=== PATIENT | female | born 1940 ===

== ENCOUNTER 2017-09-17 04:54 | Observation (INO) | payer OTHER ==
[2017-09-17] MEDS ORDERED: Nitroglycerin 2% Ointment Foilpak UD TOP STA (05:13)
[2017-09-17] MEDS ORDERED: Nitroglycerin 2% Ointment Foilpak UD TOP ONE (05:27)
--- NOTE | 2017-09-17 05:41 | ED PDOC ---
HPI: SOB/CHF/COPD Time Seen by Provider: 09/17/17 04:56 Chief Complaint (Nursing): Shortness Of Breath Chief Complaint (Provider): Shortness of Breath, Chest Pressure History Per: Patient History/Exam Limitations: no limitations Onset/Duration Of Symptoms: Days (x 2) Current Symptoms Are (Timing): Still Present Exacerbating Factor(s): Laying Flat Additional Complaint(s): Patient is a 77 y/o female with a past medical history of hypertension , diabetes, and dyslipidemia who presents to the ED with chest pressure and shortness of breath that started 2 days ago. Patient reports that the chest pressure is worse with recumbence, and also states that for the past 3 months shes had lower extremity edema. She denies fever, nausea, vomiting, diarrhea, or cough. PMD: None Provided Past Medical History Reviewed: Historical Data, Nursing Documentation, Vital Signs Vital Signs: Last Vital Signs Temp 98.2 F 09/17/17 06:39 Pulse 88 09/17/17 06:39 Resp 17 09/17/17 06:39 BP 190/87 H 09/17/17 06:39 Pulse Ox 97 09/17/17 06:39 - Medical History PMH: Arthritis, Back Problems, Depression, Diabetes, Gastritis, HTN, Hypercholesterolemia, Chronic Kidney Disease Other PMH: dyslipidemia - Surgical History Surgical History: Cholecystectomy - Family History Family History: States: Unknown Family Hx - Social History Current smoker - smoking cessation education provided: No Ex-Smoker (has not smoked in the last 12 months): No Alcohol: None Drugs: Denies - Home Medications Home Medications: Ambulatory Orders Medication Instructions Recorded Fenofibrate Nanocrystallized 145 mg PO DAILY 08/19/14 [Fenofibrate] Sertraline HCl [Zoloft] 25 mg PO DAILY 08/19/14 Solifenacin Succinate [Vesicare] 5 mg PO DAILY 08/19/14 amLODIPine [Norvasc] 10 mg PO DAILY #30 tab 10/08/15 Insulin Glargine, Recombina 40 units SC HS 01/16/17 [Lantus] MetFORMIN [glucoPHAGE] 1,000 mg PO BID tab 01/17/17 - Allergies Allergies/Adverse Reactions: Allergies Allergy/AdvReac Type Severity Reaction Status Date / Time aspirin Allergy RASH Verified 03/11/16 11:37 Review of Systems ROS Statement: Except As Marked, All Systems Reviewed And Found Negative Constitutional: Negative for: Fever Cardiovascular: Positive for: Chest Pain (pressure), Orthopnea, Paroxysmal Noc. Dyspnea Respiratory: Positive for: Shortness of Breath, SOB with Exertion. Negative for : Cough Gastrointestinal: Negative for: Nausea, Vomiting, Diarrhea Physical Exam - Reviewed Nursing Documentation Reviewed: Yes Vital Signs Reviewed: Yes - Physical Exam Appears: Positive for: Non-toxic, No Acute Distress Head Exam: Positive for: ATRAUMATIC, NORMAL INSPECTION, NORMOCEPHALIC Skin: Positive for: Normal Color, Warm, Dry Eye Exam: Positive for: Normal appearance, EOMI, PERRL. Negative for: Nystagmus ENT: Positive for: Normal ENT Inspection Neck: Positive for: Normal, Painless ROM, Supple Cardiovascular/Chest: Positive for: Regular Rate, Rhythm. Negative for: Edema, Murmur Respiratory: Positive for: Crackles (bibasilar), Rales Gastrointestinal/Abdominal: Positive for: Normal Exam, Bowel Sounds, Soft. Negative for: Tenderness Extremity: Positive for: Pedal Edema (bilateral 2+) Neurologic/Psych: Positive for: Alert, Oriented - Laboratory Results Result Diagrams: 09/17/17 05:20 - ECG O2 Sat by Pulse Oximetry: 98 (RA) Pulse Ox Interpretation: Normal Medical Decision Making Medical Decision Making: Time: 5:06 Initial Impression: 77 y/o female with shortness of breath, chest pain in setting of known diabetes, hypertension, and dyslipidemia Initial Plan: --B-Type Natriuretic Peptide --EKG --CMP --Troponin I --CBC --PTT --Prothrombin Time --Chest x-ray --Lasix --Nitro-Bid Time: 5:47 --Consulted with Dr. Connolly Scribe Attestation: Documented by Frank Cramer, acting as a scribe for Gordon Gomez MD Provider Scribe Attestation: All medical record entries made by the Scribe were at my direction and personally dictated by me. I have reviewed the chart and agree that the record accurately reflects my personal performance of the history, physical exam, medical decision making, and the department course for this patient. I have also personally directed, reviewed, and agree with the discharge instructions and disposition. Disposition - Clinical Impression Clinical Impression: CHF (congestive heart failure) - Patient ED Disposition Is Patient to be Admitted: Yes - Disposition Disposition Time: 06:00 Condition: FAIR - Pt Status Changed To: Hospital Disposition Of: Observation
[2017-09-17 06:19] LABS: BASO # 0.1 K/uL (0.0-0.2); EOS # 0.2 K/uL (0.0-0.7); EOS % 2.7 % (0.0-4.0); HEMATOCRIT 35.5 % (34.0-47.0); LYMPH # 2.2 K/uL (1.0-4.3); LYMPH % 28.6 % (20.0-40.0); MEAN CELL VOLUME 89.3 fl (81.0-99.0); MEAN CORPUSCULAR HGB CONC 33.6 g/dL (33.0-37.0); MEAN PLATELET VOLUME 11.8 fl (7.2-11.7); MONO # 0.8 K/uL (0.0-0.8); MONO % 10.3 % (0.0-10.0); NEUT # 4.3 K/uL (1.8-7.0); NEUT % 57.4 % (50.0-75.0); NRBC % 0.1 % (0.0-0.0); RED CELL DISTRIBUTION WIDTH 14.3 % (11.5-14.5)
[2017-09-17 06:53] LABS: ALB/GLOB RATIO 1.2 (1.0-2.1); ALKALINE PHOSPHATASE 132 U/L (38-126); ALT/SGPT 78 U/L (9-52); AST/SGOT 63 U/L (14-36); BILIRUBIN,TOTAL 0.2 mg/dl (0.2-1.3); BLOOD UREA NITROGEN 22 mg/dl (7-17); CALCIUM 8.4 mg/dL (8.4-10.2); CARBON DIOXIDE 24 mmol/L (22-30); CHLORIDE 106 mmol/L (98-107); GFR AFRICAN-AMERICAN 44; GLUCOSE,RANDOM 269 mg/dL (65-105); SODIUM 140 mmol/l (132-148); TOTAL PROTEIN 7.2 G/DL (6.3-8.2)
[2017-09-17 07:31] LABS: PARTIAL THROMBOPLASTIN TIME 29.5 Seconds (25.6-37.1)
[2017-09-17] MEDS ORDERED: Glucagon Recombinant 1 mg Inj IM PRN (07:54)
[2017-09-17] MEDS ORDERED: Dextrose 50% SYRINGE Inj (50 ml) IV PRN (07:54)
--- NOTE | 2017-09-17 09:58 | RAD ---
HISTORY: Chest pain COMPARISON: 01/15/2017. FINDINGS: LUNGS: The lungs are well inflated and clear. No focal consolidation. PLEURA: No significant pleural effusion identified, no pneumothorax apparent. CARDIOVASCULAR: Normal. OSSEOUS STRUCTURES: No significant abnormalities. VISUALIZED UPPER ABDOMEN: Normal. OTHER FINDINGS: None. IMPRESSION: No acute findings.
[2017-09-17] MEDS: Enoxaparin 40 mg Syringe SC SCH (12:17)
[2017-09-17] MEDS: Insulin Regular 100 units/ml SC SCH ×3 (12:39→22:21)
--- NOTE | 2017-09-17 13:21 | CARD ---
APPROVED REPORT EXAM: Two-dimensional and M-mode echocardiogram with Doppler and color Doppler. Other Information Quality : GoodRhythm : NSR INDICATION Chest Pain 2D DIMENSIONS IVSd1.44 (0.7-1.1cm)LVDd4.41 (3.9-5.9cm) LVOT Diameter2.19 (1.8-2.4cm)PWd1.11 (0.7-1.1cm) IVSs1.55 (0.8-1.2cm)LVDs2.76 (2.5-4.0cm) FS (%) 37.4 %PWs1.38 (0.8-1.2cm) M-Mode DIMENSIONS Left Atrium (MM)4.41 (2.5-4.0cm)IVSd1.47 (0.7-1.1cm) Aortic Root2.56 (2.2-3.7cm)LVDd4.44 (4.0-5.6cm) Aortic Cusp Exc.1.21 (1.5-2.0cm)PWd1.12 (0.7-1.1cm) IVSs1.82 cmFS (%) 48 % LVDs2.29 (2.0-3.8cm)PWs1.62 cm Aortic Valve AoV Peak Wnyggxhc228.7cm/sAoV VTI56.5cmAO Peak GR.22mmHg LVOT Peak Brxqqkhf135.6cm/sLVOT VTI28.80cmAO Mean GR.12mmHg FER (VMAX)1.14gm8DKL (VTI)1.12cm2 Mitral Valve MV E Yeenuicl01.2cm/sMV [address]456id[address] A Rllfxlpe43.1cm/s MV SVU27evZ/A ratio1.2MVA (PHT)2.73cm2 TDI Lateral E' Peak V9.04cm/sMedial E' Peak V6.27cm/sE/Lateral E'9.8 E/Medial E'14.1 Tricuspid Valve TR Peak Gqvptnrb182qo/sRAP GEBADUBQ57umXvCW Peak Gr.36mmHg GHED98izGn LEFT VENTRICLE The left ventricle is normal size. There is mild concentric left ventricular hypertrophy. Left ventricle systolic function is normal. The Ejection Fraction is 65-70%. There is normal LV segmental wall motion. Transmitral Doppler flow pattern is Grade I-abnormal relaxation pattern. RIGHT VENTRICLE The right ventricle is normal size. There is normal right ventricular wall thickness. The right ventricular systolic function is normal. ATRIA The left atrium size is normal. The right atrium size is normal. AORTIC VALVE The aortic valve is moderately sclerotic. No aortic regurgitation is present. There is mild valvular aortic stenosis. Calculated aortic valve area is 1.6 cm2 with maximum pressure gradient of 21 mmHg and mean pressure gradient of 11 mmHg. MITRAL VALVE Mitral annular calcification is mild. There is no evidence of mitral valve prolapse. There is no mitral valve stenosis. Mitral regurgitation is mild to moderate. TRICUSPID VALVE The tricuspid valve is normal in structure. There is mild tricuspid regurgitation. Right ventricular systolic pressure is estimated at 46 mmHg. There is moderate pulmonary hypertension. PULMONIC VALVE The pulmonary valve is normal in structure and function. There is no pulmonic valvular regurgitation. GREAT VESSELS The aortic root is normal in size. The IVC is dilated. The IVC collapses >50% with inspiration. PERICARDIAL EFFUSION The pericardium appears normal. <Conclusion> The left ventricle is normal size. There is mild concentric left ventricular hypertrophy. There is normal LV segmental wall motion. Left ventricle systolic function is normal. The Ejection Fraction is 65-70%. Transmitral Doppler flow pattern is Grade I-abnormal relaxation pattern. The aortic valve is moderately sclerotic. There is mild valvular aortic stenosis. There is mild tricuspid regurgitation. There is moderate pulmonary hypertension.
[2017-09-17] MEDS ORDERED: Pneumococcal 23-Valent Vaccine IM ONE (14:33)
[2017-09-17] MEDS ORDERED: Influenza Vaccine 18yr & older 0.5 ML/45 MCG SYR IM ONE (14:59)
--- NOTE | 2017-09-17 16:11 | CP.PCM.CON ---
History of Present Illness - History of Present Illness History of Present Illness: PT W CHEST PAIN WHICH STARTED IN THE EPIGASTRIC REGION WENT SUBSTERNAL AND INTO THROAT. ASSOCIATED WITH SOUR TASTE IN MOUTH AND SOB. OCCURRED WITH LAYING DOWN. Past Patient History - Past Medical History & Family History Past Medical History?: Yes - Past Social History Smoking Status: Never Smoked - CARDIAC Hx Hypercholesterolemia: Yes Hx Hypertension: Yes - PULMONARY Hx Respiratory Disorders: No - NEUROLOGICAL Hx Neurological Disorder: No - HEENT Hx HEENT Problems: No - RENAL Hx Chronic Kidney Disease: Yes - ENDOCRINE/METABOLIC Hx Endocrine Disorders: Yes Hx Diabetes Mellitus Type 2: Yes - HEMATOLOGICAL/ONCOLOGICAL Hx Blood Disorders: No Hx Blood Transfusions: Yes Hx Blood Transfusion Reaction: No - INTEGUMENTARY Hx Dermatological Problems: No - MUSCULOSKELETAL/RHEUMATOLOGICAL Hx Falls: No - GASTROINTESTINAL Hx Gastritis: Yes - GENITOURINARY/GYNECOLOGICAL Hx Genitourinary Disorders: Yes Hx Urinary Tract Infection: Yes - PSYCHIATRIC Hx Substance Use: No - SURGICAL HISTORY Hx Cholecystectomy: Yes - ANESTHESIA Hx Anesthesia: Yes Hx Anesthesia Reactions: No Hx Malignant Hyperthermia: No Meds Allergies/Adverse Reactions: Allergies Allergy/AdvReac Type Severity Reaction Status Date / Time aspirin Allergy RASH Verified 03/11/16 11:37 - Medications Medications: Current Medications Amlodipine Besylate (Norvasc) 10 mg PO DAILY [facility] Clopidogrel Bisulfate (Plavix) 75 mg PO DAILY [facility] Last Admin: 09/17/17 12:21 Dose: 75 mg Dextrose (Dextrose 50% Inj) 0 ml IV STAT PRN; Protocol PRN Reason: Hyglycemia Protocol Dextrose (Glutose 15) 0 gm PO ONCE PRN; Protocol PRN Reason: Hypoglycemia Protocol Enoxaparin Sodium (Lovenox) 40 mg SC DAILY [facility] PRN Reason: Protocol Last Admin: 09/17/17 12:17 Dose: 40 mg Fenofibrate (Tricor) 145 mg PO DAILY [facility] Last Admin: 09/17/17 12:16 Dose: 145 mg Furosemide (Lasix) 40 mg PO DAILY [facility] Last Admin: 09/17/17 12:24 Dose: 40 mg Gabapentin (Neurontin) 300 mg PO DAILY [facility] Last Admin: 09/17/17 12:16 Dose: 300 mg Glucagon (Glucagen Diagnostic Kit) 0 mg IM STAT PRN; Protocol PRN Reason: Hypoglycemia Protocol Insulin Human Regular (Humulin R) 0 units SC ACHS [facility] PRN Reason: Protocol Last Admin: 09/17/17 12:39 Dose: 1 u Metoprolol Tartrate (Lopressor) 100 mg PO Q12 NADYA Ramipril (Altace) 1.25 mg PO DAILY [facility] Results - Vital Signs Recent Vital Signs: Last Vital Signs Temp 98.2 F 09/17/17 13:00 Pulse 53 L 09/17/17 13:00 Resp 16 09/17/17 13:00 BP 194/82 H 09/17/17 13:00 Pulse Ox 100 09/17/17 13:00 - Labs Result Diagrams: 09/17/17 05:20 09/17/17 05:20 Labs: Laboratory Results - last 24 hr 09/17/17 09/17/17 09/17/17 05:12 05:20 05:20 WBC 6.0 RBC 3.97 Hgb 11.9 L Hct 35.5 MCV 89.3 MCH 30.0 MCHC 33.6 RDW 14.3 Plt Count 140 MPV 11.8 H Neut % (Auto) 57.4 Lymph % (Auto) 28.6 [facility] % (Auto) 10.3 H Eos % (Auto) 2.7 Baso % (Auto) 1.0 Neut # 4.3 Lymph # 2.2 [facility] # 0.8 Eos # 0.2 Baso # 0.1 PT INR APTT Sodium 140 Potassium 4.0 Chloride 106 Carbon Dioxide 24 Anion Gap 15 BUN 22 H Creatinine 1.4 H Est GFR ( Amer) 44 Est GFR (Non-Af Amer) 37 POC Glucose (mg/dL) 256 H Random Glucose 269 H Calcium 8.4 Total Bilirubin 0.2 AST 63 H ALT 78 H D Alkaline Phosphatase 132 H Troponin I < 0.0120 NT-Pro-B Natriuret Pep 1140 H Total Protein 7.2 Albumin 3.9 Globulin 3.3 Albumin/Globulin Ratio 1.2 09/17/17 05:20 WBC RBC Hgb Hct MCV MCH MCHC RDW Plt Count MPV Neut % (Auto) Lymph % (Auto) [facility] % (Auto) Eos % (Auto) Baso % (Auto) Neut # Lymph # [facility] # Eos # Baso # PT 11.7 INR 1.0 APTT 29.5 Sodium Potassium Chloride Carbon Dioxide Anion Gap BUN Creatinine Est GFR ( Amer) Est GFR (Non-Af Amer) POC Glucose (mg/dL) Random Glucose Calcium Total Bilirubin AST ALT Alkaline Phosphatase Troponin I NT-Pro-B Natriuret Pep Total Protein Albumin Globulin Albumin/Globulin Ratio Assessment & Plan (1) GERD (gastroesophageal reflux disease) Status: Acute (2) Chest pain Status: Acute (3) Hypertension Status: Acute - Assessment and Plan (Free Text) Plan: BP IS CONTROLLED NOW ON HOME MEDS. LATEST 110/70. HR IS LOW AT 52. WOULD STOP CLONIDINE AND ADD RAMIPRIL LOW DOSE. ALSO START PPI. [place] RULED OUT. NO NEED FOR FURTHER CARDIAC EVAL AT THIS TIME CP APPEARS TO BE GERD.
[2017-09-17] MEDS: Pantoprazole 40 mg EC Tab PO SCH (16:53)
--- NOTE | 2017-09-17 18:55 | CP.PCM.HP ---
History of Present Illness - History of Present Illness History of Present Illness: Patient is a 77 y/o female with a past medical history of hypertension , diabetes, and dyslipidemia who came for chest pressure and shortness of breath that started 2 days ago. Patient reports that the chest pressure is worse with recumbence, and also states that for the past 3 months shes had lower extremity edema. She denies fever, nausea, vomiting, diarrhea, or cough. Her medicines included 75 mg of clopidogrel, 100 mg of metoprolol twice a day, 40 mg of furosemide, 300 mg of gabapentin for muscle cramps, 0.1 mg of clonidine , Acidophilus, 500 mg of ciprofloxacin, with 54 units of lantus and 10 units of Humalog three times a day for each meal. Present on Admission - Present on Admission Any Indicators Present on Admission: No History of DVT/PE: No History of Uncontrolled Diabetes: No Urinary Catheter: No Decubitus Ulcer Present: No Review of Systems - Constitutional Constitutional: absent: Anorexia, Daytime Sleepiness - EENT Eyes: absent: Change in Vision Nose/Mouth/Throat: absent: Nasal Congestion - Cardiovascular Cardiovascular: Chest Pain. absent: Chest Pain with Activity, Pain Radiating to Arm/Neck/Jaw, Lightheadedness, Orthopnea - Respiratory Respiratory: Dyspnea. absent: Chest Congestion - Gastrointestinal Gastrointestinal: absent: Nausea, Vomiting - Genitourinary Genitourinary: absent: Change in Urinary Stream, Difficulty Urinating Past Patient History - Past Medical History & Family History Past Medical History?: Yes - Past Social History Smoking Status: Never Smoked - CARDIAC Hx Hypercholesterolemia: Yes Hx Hypertension: Yes - PULMONARY Hx Respiratory Disorders: No - NEUROLOGICAL Hx Neurological Disorder: No - HEENT Hx HEENT Problems: No - RENAL Hx Chronic Kidney Disease: Yes - ENDOCRINE/METABOLIC Hx Endocrine Disorders: Yes Hx Diabetes Mellitus Type 2: Yes - HEMATOLOGICAL/ONCOLOGICAL Hx Blood Disorders: No Hx Blood Transfusions: Yes Hx Blood Transfusion Reaction: No - INTEGUMENTARY Hx Dermatological Problems: No - MUSCULOSKELETAL/RHEUMATOLOGICAL Hx Falls: No - GASTROINTESTINAL Hx Gastritis: Yes - GENITOURINARY/GYNECOLOGICAL Hx Genitourinary Disorders: Yes Hx Urinary Tract Infection: Yes - PSYCHIATRIC Hx Substance Use: No - SURGICAL HISTORY Hx Cholecystectomy: Yes - ANESTHESIA Hx Anesthesia: Yes Hx Anesthesia Reactions: No Hx Malignant Hyperthermia: No Meds Allergies/Adverse Reactions: Allergies Allergy/AdvReac Type Severity Reaction Status Date / Time aspirin Allergy RASH Verified 04/10/16 11:37 Physical Exam - Constitutional Appears: No Acute Distress - Respiratory Exam Respiratory Exam: Clear to Auscultation Bilateral, NORMAL BREATHING PATTERN - Cardiovascular Exam Cardiovascular Exam: REGULAR RHYTHM. absent: Systolic Murmur - GI/Abdominal Exam GI & Abdominal Exam: Normal Bowel Sounds, Soft. absent: Tenderness - Extremities Exam Extremities exam: Positive for: normal inspection. Negative for: pedal edema Results - Vital Signs Recent Vital Signs: Last Vital Signs Temp 97.7 F 09/17/17 16:18 Pulse 89 09/17/17 16:18 Resp 20 09/17/17 16:18 BP 111/75 09/17/17 16:18 Pulse Ox 97 09/17/17 16:18 - Labs Result Diagrams: 09/17/17 05:20 09/17/17 05:20 Labs: Laboratory Results - last 24 hr 09/17/17 09/17/17 09/17/17 05:12 05:20 05:20 WBC 6.0 RBC 3.97 Hgb 11.9 L Hct 35.5 MCV 89.3 MCH 30.0 MCHC 33.6 RDW 14.3 Plt Count 140 MPV 11.8 H Neut % (Auto) 57.4 Lymph % (Auto) 28.6 [place] % (Auto) 10.3 H Eos % (Auto) 2.7 Baso % (Auto) 1.0 Neut # 4.3 Lymph # 2.2 [place] # 0.8 Eos # 0.2 Baso # 0.1 PT INR APTT Sodium 140 Potassium 4.0 Chloride 106 Carbon Dioxide 24 Anion Gap 15 BUN 22 H Creatinine 1.4 H Est GFR ( Amer) 44 Est GFR (Non-Af Amer) 37 POC Glucose (mg/dL) 256 H Random Glucose 269 H Calcium 8.4 Total Bilirubin 0.2 AST 63 H ALT 78 H D Alkaline Phosphatase 132 H Troponin I < 0.0120 NT-Pro-B Natriuret Pep 1140 H Total Protein 7.2 Albumin 3.9 Globulin 3.3 Albumin/Globulin Ratio 1.2 09/17/17 09/17/17 09/17/17 05:20 12:36 16:57 WBC RBC Hgb Hct MCV MCH MCHC RDW Plt Count MPV Neut % (Auto) Lymph % (Auto) [place] % (Auto) Eos % (Auto) Baso % (Auto) Neut # Lymph # [place] # Eos # Baso # PT 11.7 INR 1.0 APTT 29.5 Sodium Potassium Chloride Carbon Dioxide Anion Gap BUN Creatinine Est GFR ( Amer) Est GFR (Non-Af Amer) POC Glucose (mg/dL) 193 H 222 H Random Glucose Calcium Total Bilirubin AST ALT Alkaline Phosphatase Troponin I NT-Pro-B Natriuret Pep Total Protein Albumin Globulin Albumin/Globulin Ratio Assessment & Plan - Assessment and Plan (Free Text) Assessment: hypertension uncontrolled chest pain diabetes Plan: cardiac work up cardiology consult
[2017-09-18 05:13] VITALS: O2SAT 96
[2017-09-18] MEDS: Insulin Regular 100 units/ml SC SCH (07:00)
--- NOTE | 2017-09-18 08:08 | CP.PCM.PN ---
Subjective - Date & Time of Evaluation Date of Evaluation: 09/18/17 Time of Evaluation: 08:06 - Subjective Subjective: no chest pain no shortness of breath sleeping well Objective - Vital Signs/Intake and Output Vital Signs (last 24 hours): Temp Pulse Resp BP Pulse Ox 98.1 F 52 L 20 131/67 96 09/18/17 05:12 09/18/17 05:12 09/18/17 05:12 09/18/17 05:12 09/18/17 05:12 - Medications Medications: Current Medications Amlodipine Besylate (Norvasc) 10 mg PO DAILY [facility] Clopidogrel Bisulfate (Plavix) 75 mg PO DAILY [facility] Last Admin: 09/17/17 12:21 Dose: 75 mg Dextrose (Dextrose 50% Inj) 0 ml IV STAT PRN; Protocol PRN Reason: Hyglycemia Protocol Dextrose (Glutose 15) 0 gm PO ONCE PRN; Protocol PRN Reason: Hypoglycemia Protocol Enoxaparin Sodium (Lovenox) 40 mg SC DAILY [facility] PRN Reason: Protocol Last Admin: 09/17/17 12:17 Dose: 40 mg Fenofibrate (Tricor) 145 mg PO DAILY [facility] Last Admin: 09/17/17 12:16 Dose: 145 mg Furosemide (Lasix) 40 mg PO DAILY [facility] Last Admin: 09/17/17 12:24 Dose: 40 mg Gabapentin (Neurontin) 300 mg PO DAILY [facility] Last Admin: 09/17/17 12:16 Dose: 300 mg Glucagon (Glucagen Diagnostic Kit) 0 mg IM STAT PRN; Protocol PRN Reason: Hypoglycemia Protocol Insulin Human Regular (Humulin R) 0 units SC ACHS NADYA PRN Reason: Protocol Last Admin: 09/18/17 07:00 Dose: 1 u Metoprolol Tartrate (Lopressor) 100 mg PO Q12 [facility] Last Admin: 09/17/17 22:22 Dose: 100 mg Pantoprazole Sodium (Protonix Ec Tab) 40 mg PO DAILY [facility] Last Admin: 09/17/17 16:53 Dose: 40 mg Ramipril (Altace) 1.25 mg PO DAILY [facility] - Labs Labs: 09/17/17 05:20 09/17/17 05:20 PT 11.7 Seconds (9.8-13.1) 09/17/17 05:20 INR 1.0 (0.9-1.2) 09/17/17 05:20 APTT 29.5 Seconds (25.6-37.1) 09/17/17 05:20 - Constitutional Appears: No Acute Distress - Respiratory Exam Respiratory Exam: Clear to Ausculation Bilateral, NORMAL BREATHING PATTERN - Cardiovascular Exam Cardiovascular Exam: REGULAR RHYTHM. absent: Murmur - GI/Abdominal Exam GI & Abdominal Exam: Soft. absent: Tenderness Assessment and Plan - Assessment and Plan (Free Text) Assessment: A 77 year old female who came for shortness of breath, chest pain, history of DM and hypertension cardiology cleared for discharge home with low dose BHUPENDRA inhibitor and PPI Plan: discharge patient home out patient follow up with PMD
--- NOTE | 2017-09-18 08:36 | CARD ---
APPROVED REPORT EKG Measurement Heart [id number] <Conclusion> Sinus bradycardia normal ECG
[2017-09-18] MEDS: Enoxaparin 40 mg Syringe SC SCH (08:44)
[2017-09-18] MEDS: Pantoprazole 40 mg EC Tab PO SCH (08:46)
[2017-09-18 11:57] VITALS: BP 178/65; PULSE 56; RESP 18; TEMP 98.4
== END 2017-09-18 12:30 | disposition home or self-care (01) ==
LOC: H.ER 04:54 → H.ERHOLD 05:44 → H.TEL 07:56
PROVIDERS: ADMIT Internal Medicine; ATTEND Internal Medicine
DX: I12.9 Hypertensive chronic kidney disease with stage 1 through stage 4 chronic kidney disease, or unspecified chronic kidney disease (principal); N18.9 Chronic kidney disease, unspecified; E11.22 Type 2 diabetes mellitus with diabetic chronic kidney disease; R07.9 Chest pain, unspecified; K21.9 Gastro-esophageal reflux disease without esophagitis; E78.5 Hyperlipidemia, unspecified; K29.70 Gastritis, unspecified, without bleeding; Z23 Encounter for immunization; Z88.6 Allergy status to analgesic agent; Z79.4 Long term (current) use of insulin; Z87.440 Personal history of urinary (tract) infections
CPT/HCPCS: 71010; 80053; 82948; 83880; 84484; 85025; 85610; 85730; 90732; 93005; 93306; 99285; G0008; G0009; G0378; J1650; J1940; Q2035

== ENCOUNTER 2017-10-31 10:13 | Emergency (ER) | payer OTHER ==
[2017-10-31 10:20] VITALS: BMI 24.1
[2017-10-31 10:25] VITALS: RESP 20; TEMP 98.1; O2SAT 98
--- NOTE | 2017-10-31 11:02 | ED PDOC ---
Upper Extremity Pain/Injury Time Seen by Provider: 10/31/17 10:56 Chief Complaint (Nursing): Upper Extremity Problem/Injury History Per: Patient Onset/Duration Of Symptoms: Days (2) Current Symptoms Are (Timing): Still Present Quality: Aching Severity: Moderate Pain Scale Rating Of: 3 Exacerbating Factor(s): Movement Additional Complaint(s): Tripped and fell yesterday with injury to right hand. No other injury. C/o pain and swelling right hand Past Medical History Vital Signs: Last Vital Signs Temp 98.1 F 10/31/17 10:20 Pulse 55 L 10/31/17 10:20 Resp 20 10/31/17 10:20 BP 237/80 H 10/31/17 10:20 Pulse Ox 98 10/31/17 10:57 - Medical History PMH: Arthritis, Back Problems, Depression, Diabetes, Gastritis, HTN, Hypercholesterolemia, Chronic Kidney Disease - Surgical History Surgical History: Cholecystectomy - Family History Family History: States: Unknown Family Hx - Home Medications Home Medications: Ambulatory Orders Medication Instructions Recorded Fenofibrate Nanocrystallized 145 mg PO DAILY 08/19/14 [Fenofibrate] Sertraline HCl [Zoloft] 25 mg PO DAILY 08/19/14 Solifenacin Succinate [Vesicare] 5 mg PO DAILY 08/19/14 Clopidogrel [Plavix] 75 mg PO DAILY tab 09/18/17 Fenofibrate [Tricor] 145 mg PO DAILY tab 09/18/17 Furosemide [Lasix] 40 mg PO DAILY tab 09/18/17 Gabapentin [Neurontin] 300 mg PO DAILY cap 09/18/17 Metoprolol Tartrate [Lopressor] 50 mg PO Q12 #60 tab 09/18/17 Pantoprazole [Protonix EC Tab] 40 mg PO DAILY #30 ect 09/18/17 Ramipril [Altace] 1.25 mg PO DAILY #30 cap 09/18/17 amLODIPine [Norvasc] 10 mg PO DAILY tab 09/18/17 traMADol [Ultram] 50 mg PO Q8 #10 tab 10/31/17 - Allergies Allergies/Adverse Reactions: Allergies Allergy/AdvReac Type Severity Reaction Status Date / Time aspirin Allergy RASH Verified 10/31/17 10:56 Review of Systems Musculoskeletal: Positive for: Hand Pain Neurological: Negative for: Weakness, Numbness Physical Exam - Physical Exam Appears: Positive for: Non-toxic, No Acute Distress Skin: Positive for: Normal Color, Warm, DRY Extremity: Positive for: Other (Right hand. swelling tenderness lateral aspect of hand with ecchymosis laterally) Neurologic/Psych: Positive for: Alert, Oriented. Negative for: Motor/Sensory Deficits - ECG O2 Sat by Pulse Oximetry: 98 Disposition - Clinical Impression Clinical Impression: Metacarpal bone fracture - Patient ED Disposition Is Patient to be Admitted: No - Disposition Referrals: Ilda Hayes MD [Staff Provider] - Disposition: Routine/Home Disposition Time: 11:58 Condition: FAIR Prescriptions: traMADol [Ultram] 50 mg PO Q8 #10 tab Instructions: Hand Fracture (ED) Forms: [employer] (Irish)
--- NOTE | 2017-10-31 11:28 | RAD ---
PROCEDURE: Right Hand Radiographs. HISTORY: trauma COMPARISON: None. FINDINGS: BONES: Minimally displaced fracture of the 5th metacarpal. Old fracture of the distal ulna. JOINTS: Degenerative changes. SOFT TISSUES: Soft tissue swelling adjacent to 5th metacarpal. OTHER FINDINGS: None. IMPRESSION: Minimally displaced fracture of the 5th metacarpal with adjacent soft tissue swelling. Findings conveyed to Dr. Obando by Dr. Crouch at 11:25 a.m. on 10/31/2017.
[2017-10-31 12:07] VITALS: BP 186/96; PULSE 52
[2017-10-31] MEDS ORDERED: Albuterol 0.083% Inhal Sol (2.5 mg/3 mL) UD ONE (13:07)
[2017-10-31] MEDS ORDERED: Sod Polystyrene Sulf 15 gm/60 ml Susp ONE (13:07)
== END 2017-10-31 12:15 | disposition home or self-care (01) ==
LOC: H.ER 10:13
DX: S62.002A Unspecified fracture of navicular [scaphoid] bone of left wrist, initial encounter for closed fracture (principal); W19.XXXA Unspecified fall, initial encounter; Y92.89 Other specified places as the place of occurrence of the external cause; E78.00 Pure hypercholesterolemia, unspecified; F32.9 Major depressive disorder, single episode, unspecified; I12.9 Hypertensive chronic kidney disease with stage 1 through stage 4 chronic kidney disease, or unspecified chronic kidney disease; N18.9 Chronic kidney disease, unspecified